=== PATIENT | male | born 1985 | race Two or more races ===

== ENCOUNTER 2024-12-07 13:40 | Emergency (ER) | payer OTHER ==
[~2024-12-07] VITALS: Ht 177.8 cm; Wt 75.7 kg
[2024-12-07] MEDS ORDERED: ZOVIRAX400 MG PO (14:05)
[2024-12-07] MEDS ORDERED: CEFTRIAXONE SODIUM 1,000 MG VIAL IM STA (14:17)
[2024-12-07] MEDS ORDERED: TETANUS & DIPHTHERIA TOX,ADULT 0.5 ML VIAL IM STA (14:17)
[2024-12-07] MEDS ORDERED: DIPHTH,PERTUSS(ACELL),TET VAC 0.5 ML SYRINGE IM ONE (14:43)
[2024-12-07] MEDS ORDERED: CEFTRIAXONE SODIUM 1,000 MG VIAL ONE (14:43)
== END 2024-12-07 15:09 | disposition home or self-care (01) ==
LOC: ER 13:40
DX: S80.812A Abrasion, left lower leg, initial encounter (principal); X58.XXXA Exposure to other specified factors, initial encounter; Y93.89 Activity, other specified; Y92.89 Other specified places as the place of occurrence of the external cause; Y99.9 Unspecified external cause status